=== PATIENT | male | born 1985 | race Caucasian/White ===

== ENCOUNTER 2018-02-05 19:27 | Emergency (ER) | payer OTHER, SELFPAY ==
[~2018-02-05] VITALS: Ht 185.4 cm; Wt 124.8 kg
[2018-02-05 20:09] LABS: BASOPHILS # (AUTO) 0.06 x10^3/uL (0-0.1); BASOPHILS % (AUTO) 1 % (0-1); EOSINOPHILS # (AUTO) 0.09 x10^3/uL (0-0.4); EOSINOPHILS % (AUTO) 1 % (1-7); LYMPHOCYTES # (AUTO) 2.76 x10^3/uL (1-3.4); LYMPHOCYTES % (AUTO) 27 % (22-44); MD NO; MEAN CORPUSCULAR HEMOGLOBIN 31.4 pg (27.5-34.5); MEAN CORPUSCULAR HGB CONC 34.2 g/dL (33.2-36.2); MEAN CORPUSCULAR VOLUME 91.8 fL (81-97); MEAN PLATELET VOLUME 9.7 fL (7.4-10.4); MONOCYTES % (AUTO) 6 % (2-9); NEUTROPHILS # (AUTO) 6.67 x10^3/uL (1.8-6.8); NEUTROPHILS % (AUTO) 66 % (42-75); PLATELET COUNT 305 x10^3/uL (130-400); RED BLOOD COUNT 5.08 x10^6/uL (4.38-5.82); RED CELL DISTRIBUTION WIDTH 12.9 % (9.4-14.8)
[2018-02-05 20:18] LABS: ALBUMIN 3.8 g/dL (3.4-5.0); ANION GAP 9 mmol/L (5-15); CALCIUM 9.3 mg/dL (8.5-10.1); CHLORIDE 102 mmol/L (98-107)
[2018-02-05 20:37] LABS: ALANINE AMINOTRANSFERASE 92 U/L (12-78); ALKALINE PHOSPHATASE 85 U/L (45-117); BILIRUBIN,TOTAL 0.6 mg/dL (0.2-1.0); CREATININE 1.05 mg/dL (0.7-1.3); TOTAL PROTEIN 8.5 g/dL (6.4-8.2)
[2018-02-05 21:39] LABS: MICROSCOPIC AUTO
[2018-02-05 21:48] LABS: CULTURE INDICATED? YES
[2018-02-05] MEDS ORDERED: IBUPROFEN 200 MG TABLET PO ONE (23:00)
[2018-02-05] MEDS ORDERED: IBUPROFEN 200 MG TABLET ONE (23:00)
[2018-02-05 23:08] VITALS: BP 154/79
== END 2018-02-05 23:10 | disposition home or self-care (01) ==
LOC: ED 23:04
DX: N20.2 Calculus of kidney with calculus of ureter (principal); E11.9 Type 2 diabetes mellitus without complications
CPT/HCPCS: 36415; 74021; 74176; 80053; 81001; 83690; 85025; 87086; 99285

== ENCOUNTER 2018-07-25 18:42 | Emergency (ER) | payer SELFPAY ==
[~2018-07-25] VITALS: Ht 185.4 cm; Wt 129.9 kg
[2018-07-25 18:51] VITALS: BP 106/64
== END 2018-07-25 20:42 | disposition home or self-care (01) ==
LOC: ED 20:36
DX: S20.02XA Contusion of left breast, initial encounter (principal); V49.09XA Driver injured in collision with other motor vehicles in nontraffic accident, initial encounter; Y93.89 Activity, other specified; Y99.8 Other external cause status; Y92.410 Unspecified street and highway as the place of occurrence of the external cause
CPT/HCPCS: 71046; 93005; 99284